=== PATIENT | female | born 1935 | race Caucasian/White ===

== ENCOUNTER 2018-05-23 14:03 | Observation (INO) | payer OTHER, MEDICARE ==
[2018-05-23] MEDS ORDERED: LR 1,000 ML IV ONE (14:24)
[2018-05-23] MEDS ORDERED: BACITRACIN ZINC 0.5 OZ OINTTUBE TP ONE (14:24)
[2018-05-23] MEDS ORDERED: GENTAMICIN SULFATE 80 MG/2 ML VIAL ONE (14:25)
[2018-05-23] MEDS ORDERED: BUPIVACAINE/EPI 0.5% 30 ML SDV ONE (14:25)
[2018-05-23] MEDS ORDERED: BUPIVACAINE 0.5% 30 ML SDV ONE (14:25)
[2018-05-23] MEDS ORDERED: LIDOCAINE 1% 300 MG/30 ML SDV ONE ×2 (14:25→14:43)
[2018-05-23] MEDS ORDERED: ceFAZolin 1 GM/5 ML SYR ONE (14:25)
[2018-05-23] MEDS ORDERED: BACITRACIN 50,000 UNITS/10 ML SYR IRR ONE (14:25)
--- NOTE | 2018-05-23 15:03 | PDANEPAE ---
ANE History of Present Illness failed breast implants, here for B breast reconstruction/ abdominoplasty ANE Past Medical History - Cardiovascular History Hx Hypertension: No Hx Arrhythmias: No Hx Chest Pain: No Hx Coronary Artery / Peripheral Vascular Disease: No Hx CHF / Valvular Disease: No Hx Palpitations: No - Pulmonary History Hx COPD: No Hx Asthma/Reactive Airway Disease: No Hx Recent Upper Respiratory Infection: No Hx Oxygen in Use at Home: No Hx Sleep Apnea: Yes Sleep Apnea Screening Result - Last Documented: Positive - Neurologic History Hx Cerebrovascular Accident: No Hx Seizures: No Hx Dementia: No - Endocrine History Hx Diabetes: No Endocrine History Comment: HYPOTHYROID - Renal History Hx Renal Disorders: No - Liver History Hx Hepatic Disorders: No - Neurological & Psychiatric Hx Hx Neurological and Psychiatric Disorders: No - Cancer History Hx Cancer: Yes Cancer History Comment: BREAST - Congenital Disorder History Hx Congenital Disorders: No - GI History Hx Gastrointestinal Disorders: Yes Gastrointestinal History Comment: COLITIS - Other Health History Other Health History: OSTEOARTHRITIS LT HIP - Chronic Pain History Chronic Pain: Yes (LT HIP) - Surgical History Prior Surgeries: JANELL SURFACE VEINS CLOSURE 06/2017. JANELL CATARACT. JANELL TOTAL KNEE. LT TOTAL HIP. RT RTC. JANELL MASTECTOMY FOR CA. BREAST RECONSTRUCTION 1981. RT BICEPS TENDON. RT ELBOW TENDON REATTACHMENT. TONSILLECTOMY. HYSTERECTOMY. NABEEL ANE Review of Systems Review of Systems: - Exercise capacity METS (RN): 4 METS ANE Patient History - Allergies Allergies/Adverse Reactions: cefazolin [From Ancef] Allergy (Verified 05/19/18 12:41) Hives ketamine Allergy (Verified 05/19/18 12:40) DIFFICULTY BREATHING morphine Allergy (Verified 05/19/18 12:42) BECOMES VIOLENT oxycodone [From OxyContin] Allergy (Verified 05/19/18 12:42) DIFFICULTY BREATHING Penicillins Allergy (Verified 05/19/18 12:42) Hives Sulfa (Sulfonamide Antibiotics) Allergy (Verified 05/19/18 12:43) Hives tetracycline Allergy (Verified 05/19/18 12:43) Hives tramadol Allergy (Verified 05/19/18 12:44) Hives warfarin [From Coumadin] Allergy (Verified 05/19/18 12:41) Hives - Home Medications Home Medications: Aspirin EC 81 mg (*) HS 05/19/18 [Last Taken 1 Week Ago ~05/16/18] Azopt 1% HS 05/19/18 [Last Taken 05/22/18] Estradiol DAILY 05/19/18 [Last Taken 05/23/18 07:30] Herbals/Supplements -Info Only DAILY 05/19/18 [Last Taken 1 Week Ago ~05/16/18] Latanoprost 0.005% Eye Drop HS 05/19/18 [Last Taken 05/22/18] Levothyroxine DAILY 05/19/18 [Last Taken 05/23/18 07:30] Lisinopril HS 05/19/18 [Last Taken 05/22/18] SIMVASTATIN HS 05/19/18 [Last Taken 05/22/18] Budesonide 05/23/18 [Last Taken 05/23/18 07:30] - NPO status NPO Status: no food or drink >8 hours NPO Since - Liquids (Date): 05/23/18 NPO Since - Liquids (Time): 11:00 NPO Since - Solids (Date): 05/23/18 NPO Since - Solids (Time): 07:30 - Anes Hx Anes Hx: no prior problems - Smoking Hx Smoking Status: Never smoked - Alcohol Use Alcohol Use: Rarely - Family Anes Hx Family Anes Hx: none ANE Labs/Vital Signs - Vital Signs Blood Pressure: 150/83 Heart Rate: 80 Respiratory Rate: 18 O2 Sat (%): 94 Height: 158.75 cm Weight: 88.451 kg ANE Physical Exam - Airway Neck exam: FROM Mallampati Score: Class 2 Mouth exam: normal dental/mouth exam - Pulmonary Pulmonary: no respiratory distress, clear to auscultation - Cardiovascular Cardiovascular: regular rate and rhythym, no murmur, rub, or gallop - ASA Status ASA Status: III ANE Anesthesia Plan Anesthesia Plan: general endotracheal anesthesia Lines/Monitors: additional IV
[2018-05-23] MEDS ORDERED: MIDAZOLAM 2 MG/2 ML VIAL IVP ONE (15:05)
[2018-05-23] MEDS ORDERED: fentaNYL 100 MCG/2 ML INJ ONE (15:14)
[2018-05-23] MEDS ORDERED: PROPOFOL 200 MG/20 ML VIAL ONE (15:14)
[2018-05-23] MEDS ORDERED: DEXMEDETOMIDINE HCL 400 MCG in NS 100 ML IV ONE (15:30)
--- NOTE | 2018-05-23 16:20 | PDGENHP ---
History & Physical Chief Complaint: Breast Cancer History History of Present Illness: Bilateral Latissimus Flaps 30 years ago Pertinent Past, Social, Family History: History of sleep apnea, on CPAP at home. No cardiac history. Controlled hypertension. Surgical history: Mastectomies and latisimus flap reconstructions, Open Cholycystectomy, Abdominoplasty Relevant Physical Exam: Cardiovascular Exam: Heart sounds normal. Peripheral pulses normal, no peripheral edema. Respiratory exam :Chest clear, good air entry Cardiorespiratory Assessment: Fit for procedure
[2018-05-23] MEDS ORDERED: LIDO/EPI 1% **for epidural** 30 ML SDV ONE (16:27)
[2018-05-23] MEDS ORDERED: CLINDAMYCIN 600 MG/DEXTROSE 50 ML IV ONE (17:00)
[2018-05-23] MEDS ORDERED: HYDROmorphONE/DILAUDID 2 MG/ML INJ ONE (17:43)
[2018-05-23] MEDS ORDERED: oxyCODONE IR 5 MG TAB PO PRN (19:06)
[2018-05-23] MEDS ORDERED: ONDANSETRON 4 MG/2 ML VIAL IVP PRN (19:06)
[2018-05-23] MEDS ORDERED: PROMETHAZINE HCL 25 MG/ML INJ IVP PRN (19:06)
[2018-05-23] MEDS ORDERED: HYDROCODONE/APAP 5/325 TAB PO PRN (19:06)
[2018-05-23] MEDS ORDERED: NALOXONE HCL 0.4 MG/ML INJ IVP PRN (19:06)
[2018-05-23] MEDS ORDERED: fentaNYL 100 MCG/2 ML INJ IVP PRN (19:06)
[2018-05-23] MEDS ORDERED: PHENYLEPHRINE HCL 100 MCG/ML SYR IVP PRN (19:06)
[2018-05-23] MEDS ORDERED: ACETAMINOPHEN 500 MG TAB PO PRN (19:06)
[2018-05-23] MEDS ORDERED: HYDROmorphONE/DILAUDID 2 MG/ML INJ IVP PRN (19:06)
--- NOTE | 2018-05-23 19:12 | POSTANESTH ---
Post Anesthetic Evaluation Cardiovascular Status: Normal, Stable, Similar to Pre-Op Cond Respiratory Status: Normal, Stable, Similar to Pre-op Cond. Level of Consciousness/Mental Status: Can Participate in Eval, Alert and Oriented Pain Control: Adequate, Prn Tx Ordered Nausea/Vomiting Control: Adequate, Prn Tx Ordered Complications Possibly Related to Anesthesia: None Noted
--- NOTE | 2018-05-23 23:01 | GOP ---
[f rep st] OPERATIVE REPORT DATE OF OPERATION: 05/23/2018 SURGEON: Kurtis Britt MD PREOPERATIVE DIAGNOSIS: 1. Breast ptosis status post breast cancer reconstruction. 2. Abdominal laxity and fat deposits. POSTOPERATIVE DIAGNOSIS: SAme PROCEDURE PERFORMED: 1) Bilateral breast reconstruction revision 2) Modified abdominoplasty and liposuction FINDINGS: ESTIMATED BLOOD LOSS: Estimated total blood loss 75 mL. DESCRIPTION OF PROCEDURE: The patient was lying supine under general anesthesia , and the anterior chest and abdominal region were prepped with Betadine scrub and draped. Incisions were made according to preoperative markings on both breasts for revision mastopexy. Skin was excised and appropriately undermined. Bleeders were controlled with electrocautery. Closure was carried out with 3- 0 Stratafix running subcuticular sutures. In the abdominal region, liposuction of the lateral hip area was carried out with a 4 mm Anny cannula. A total of 750 cc was removed from each side of which 600 cc on each side was fat after it out. Incision was then made across the lower abdomen according to preoperative markings, and dissection was carried down through subcutaneous fat to abdominal muscle fascia. Dissection was swept superiorly up to the ribcage bilaterally and the xiphoid in the midline. Bleeders were controlled with electrocautery. Excess skin and fat was measured and excised along with most of the sub Juanito fat from the upper abdomen. Bleeders were once again controlled with electrocautery. No further sutures were placed in the muscle which had been previously repaired in the past. 3-0 Stratafix progressive tension sutures were placed between the skin flap and underlying muscle both to alleviate tension and minimize space. Two 10 mm Fernie-Rivera drains were placed. The umbilicus was brought out and sutured with 5-0 Prolene. The lower abdominal incision was repaired with a 3-0 Stratafix running subcuticular sutures. The drains were sutured with 2-0 silk. The areas of subcuticular suture on both the breast and abdomen were dressed with Steri-Strips and gauze. The drain sites and umbilicus were dressed with Xeroform and gauze. The procedure was tolerated well. /[id number]/MODL MTDD
[2018-05-23] MEDS: MEPERIDINE HCL 50 MG TAB PO PRN (23:39)
[2018-05-24] MEDS: MEPERIDINE HCL 50 MG TAB PO PRN ×2 (07:30→15:36)
[2018-05-24] MEDS ORDERED: ENOXAPARIN 30 MG/0.3 ML SYR SC SCH (09:00)
--- NOTE | 2018-05-24 12:32 | ASMTCMCOM ---
CM Note CM Note Notes: Patient is POD #1 bilateral breast reconstruction revision and modified abdominoplasty and liposuction. She is normally independent, lives w her , Aba. No d/c needs anticipated. Case Management available if this changes. Current CM Discharge plan: home independent Date Signed: 05/24/2018 12:32 PM Electronically Signed By:Chelsea Bueno RN
[2018-05-24 15:21] VITALS: BP 101/58
== END 2018-05-24 17:50 | disposition home or self-care (01) ==
LOC: FSGY 14:03 → EEVIPCON 15:45 → F1N 20:43
PROVIDERS: ADMIT Plastic Surgery; ATTEND Plastic Surgery
PROC: 0H0V0ZZ Alteration of Bilateral Breast, Open Approach (ICD-10-PCS; principal; 2018-05-23 15:30)
PROC: 0J083ZZ Alteration of Abdomen Subcutaneous Tissue and Fascia, Percutaneous Approach (ICD-10-PCS; principal; 2018-05-23 15:30)
PROC: 0J080ZZ Alteration of Abdomen Subcutaneous Tissue and Fascia, Open Approach (ICD-10-PCS; principal; 2018-05-23 15:30)
DX: N65.0 Deformity of reconstructed breast (principal); Z85.3 Personal history of malignant neoplasm of breast; Z90.13 Acquired absence of bilateral breasts and nipples; L57.4 Cutis laxa senilis; E65 Localized adiposity
CPT/HCPCS: 15830; 15877; 19380; J1170; J1650; J2250; J2704; J3010; J1580